=== PATIENT | female | born 1955 | race Caucasian/White ===

== ENCOUNTER → 2024-04-09 13:50 | Outpatient (REF) | payer MEDICARE, OTHER, SELFPAY | LOC: HWWDC 13:50 | PROVIDERS: ATTENDING PHYSICIAN Family Medicine | DX: Z12.31 Encounter for screening mammogram for malignant neoplasm of breast (principal) | CPT/HCPCS: 77063; 77067 ==

== ENCOUNTER 2024-05-14 18:16 | Emergency (ER) | payer MEDICARE, OTHER, SELFPAY ==
[2024-05-14 18:19] VITALS: BP 171/97
--- NOTE | 2024-05-14 19:15 | ED.GENMED ---
History of Present Illness
General
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
Source: patient
Exam Limitations: none
Time Seen by Provider: 05/14/24 18:48
History of Present Illness
History of Present Illness:
This is a 68 year old female that comes in with c/o right lower abd pain. States that she was in [facility] and went to the Hospital there for right lower abd pain. States tat she was told that she has a cyst that was 6-8cm. States that she has pain
and vomiting and was given Hydrocodone with Tylenol and Zofran. States that this is not helping. States that she is here due to the pain. States that she has an appointment with Dr. Irizarry on Sunday. States that she is nauseated , has a headache.
Denies any fever, chills, chest pain, SOB, vomiting, diarrhea, dizziness, urinary burning.
Past History
Past History
ED Past Medical History: Cancer (CLL), Hypercholesterolemia, Hypothyroidism and Other (Ovarian cyst)
ED Past Surgical History: Gynecological (Tubal.), Tonsilectomy and Other (Ganglion cyst removed, )
Social History
Tobacco: Non-smoker
Alcohol: Occasional
Drug: None
Personal:
Living: alone
Employment: Employed
Review of Systems
Review of Systems
All Other Systems: ROS reviewed and negative except as documented in HPI and ROS
Constitutional: Reports no symptoms; Denies fever or chills
EENT: Reports no symptoms
Respiratory: Reports no symptoms; Denies cough or trouble breathing
Cardiac: Reports no symptoms; Denies chest pain
ABD/GI: Reports abdominal pain, nausea and vomiting; Denies diarrhea
: Reports no symptoms; Denies dysuria, frequency or urgency
Musculoskeletal: Reports no symptoms
Skin: Reports no symptoms
Neurological: Reports headache; Denies dizzy
Psychiatric: Reports no symptoms
Phy Exam
General Physical Exam
General Presentation: mild distress
General age: appears stated age
General Skin: warm and dry
General Habitus: elderly
General Mental: alert
General Hydration: appears well hydrated
ENT Exam
ENT Exam: TM's normal, pharynx normal and neck supple
Eye Exam
Eye Exam: EOMI
Cardiovascular Exam
Cardiovascular Exam: regular rate/rhythm, no edema, no murmur and normal peripheral pulses
Pulmonary Exam
Pulmonary Exam: lungs clear, no respiratory distress, no rales, chest non tender, no crackles, no rhonchi, no wheezing and no cough
Gastrointestinal Exam
Gastrointestinal Exam: normal bowel sounds, soft, no organomegaly, no pulsatile mass, non distended and tender (RLQ tenderness with palpation)
Musculoskeletal Exam
Musculoskeletal Exam: full ROM and no edema
Skin Exam
Skin Exam: normal color, warm/dry, no rash and no petechia
Course
Orders/Labs/Results
Orders:
Orders
05/14/24 19:13
Acetaminophen [Tylenol] 1,000 mg PO NOW STA
HYDROmorphone [Dilaudid] 1 mg IV NOW STA
US Pelvis Only (non-obstetric) Urgent
Comment:
Reason For Exam: Right lower abd pain
05/14/24 19:14
0.9% Sodium Chloride 1000 ml [Nss] 1,000 ml IV BOLUS
05/14/24 19:16
CT Abd/pel W Iv And Oral Contr Urgent
Comment:
Reason For Exam: Right lower abd pain
Iohexol [Omnipaque] See Protocol PO NOW STA
05/14/24 19:18
Acetaminophen 1000MG/100Ml [Ofirmev] 1,000 mg in 100 ml IV ONCE
Acetaminophen IV Indication:: ED Narcotic Naive Pt-ONCE
05/14/24 19:59
Complete Blood Count/With Diff Urgent
Comprehensive Metabolic Panel Urgent
05/14/24 20:02
Urinalysis Reflex To Culture Urgent
Date Specimen was Collected: 05/14/24
Time Specimen was Collected: 19:25
05/14/24 20:31
Ondansetron Injectable [Zofran] 4 mg .ROUTE .STK-MED ONE
05/14/24 20:33
Ondansetron Injectable [Zofran] 4 mg IV NOW STA
Abnormal Lab Results
05/14/24
19:59
WBC 41.7 H* 10^3/uL
(4.8-10.8)
MCH 31.7 H pg
(27.0-31.0)
Abs Immat Gran (auto) 0.1 H 10^3/uL
(0-0.05)
Absolute Neuts (auto) 6.6 H 10^3/uL
(1.4-6.5)
Absolute Lymphs (auto) 33.8 H 10^3/uL
(1.2-3.4)
Absolute Monos (auto) 0.8 H 10^3/uL
(0.1-0.6)
Neutrophils % 15.7 L %
(42.2-75.2)
Lymphocytes % 81.1 H %
(20.5-51.1)
Potassium 3.4 L mmol/L
(3.5-5.1)
05/14/24 19:59
05/14/24 19:59
Leukocytosis ( Due to CLL), Potassium slightly low. Urine negative for infection or blood.
Vital Signs
Initial and Last Documented VS:
Initial Vital Signs
Temp Pulse Resp BP Pulse Ox
98.1 F 68 16 171/97 97
05/14/24 18:19 05/14/24 18:19 05/14/24 18:19 05/14/24 18:19 05/14/24 18:19
Last Documented Vital Signs
Temp Pulse Resp BP Pulse Ox
97.5 F 54 18 134/70 97
05/14/24 22:00 05/14/24 20:00 05/14/24 20:00 05/14/24 22:52 05/14/24 22:52
MDM/Problems Addressed
Differential Diagnosis Includes:
Ovarian cyst. UTI. Appendicitis
MDM/Problems Addressed:
This is a 68 year old female that comes in with c/o right lower abd pain. States that this started on Sunday and she went to the hospital in [facility] for right abd pain. States that she was told that she has a cyst. States that the pain is
unbearable and she has been vomiting.
Will get labs, US and CT scan. Medicate for pain and IV fluids.
CT cont- Bony degenerative changes as described. Coronary artery calcifications. Please correlate with symptoms of and risk factors for coronary artery disease, with further workup as clinically appropriate.
Back into see patient. Reviewed CT and US. Patient has an appointment with [facility] on Sunday. Will have patient use Tylenol 1000mg every 6 hours for pain and alternate with Ibuprofen 600mg every 6 hours with food. Will also give Oxycodone for
break through pain. Patient can use a heating pad or ice which ever makes her feel better to the lower abd. Explained that she is also constipated. will give Bottle of Magnesium Citrate. Patient to return with any concerns.
Chronic conditions affecting care:
History of ovarian cyst
Acute Exacerbation and/or Progression of Chronic Illness:
Ovarian cyst
*Radiology
Radiology exam reviewed: radiology read reviewed (US-Normal appearance of the uterus and the left ovary. There is a simple cyst within the right obary which has slightly enlarged compared to pelvic ultrasound of October 11, 2018. Base on criteria
from the [employer], this is classified as 0-RADS 2, almost certainly benign, but), all reviewed NAD by ED Provider (US cont-has slightly enlarged over time. Patient reportedly scheduled for a gynecology appointment for further
evaluation. CT abd/pelvis- The appendix is normal. Moderate amount of stool within the colon, suggesting a degree constipation. NO evidence for stercoral colitis. No evidence for bowel) and other (CT cont- obstruction or free intraperitoneal air.
Right ovarian homogeneous cystic density mass, increasing in size comparing back to 2018, and corresponding to simple cystic mass identified on earlier pelvic US today. based on interval enlargement over time, gynecologic consultation is
recommended.)
*Pulse Oximetry
Patient hypoxic: no
*EKG
Interpreted by ED Provider?: NA
Rate: EKG- N/A
*Student Support Advisor Interpretation
Rate: Student Support Advisor- N/A
*Critical Care Note
Total Time (30-74mins, 75-104mins- exclusive of procedures): Not Applicable
ED Attending Note
-
Portions of this chart may have been created with voice recognition software.� Occasional wrong word or��sound alike� substitutions may have occurred due to the inherent limitations of voice recognition software.
Discharge Plan
Departure
Patient Disposition: Home (Routine Discharge)
Date of Disposition: 05/14/24
Time of Disposition: 23:13
Patient with high blood pressure during this ER visit?: Yes
Condition: Good
Covid-19: Not Applicable
Discharge Problem:
Ovarian cyst, right, Constipation
Instructions: Constipation, Adult ED, Ovarian Cyst ED, BLOOD PRESSURE
Prescriptions:
New
oxycodone 5 mg tablet
5 mg PO Q8H PRN (Reason: Pain) Qty: 7 0RF
No Action
hydrocodone-acetaminophen 5-325 mg Tablet
1 tab PO Q8HPRN PRN (Reason: moderate pain)
simvastatin 10 mg Tablet
10 mg PO HS
Theragen Tablet
2 tab PO DAILY
fexofenadine [Magdalena] 180 mg Tablet
180 mg PO DAILY
losartan-hydrochlorothiazide 100-25 mg Tablet
1 tab PO DAILY
levothyroxine 88 mcg Tablet
88 mcg PO DAILY
ascorbic acid (vitamin C) [Vitamin C] 500 mg Tablet
500 mg PO DAILY
brimonidine 0.2 % Drops
1 drp BOTH EYES BID
docusate sodium [Colace] 100 mg Capsule
100 mg PO BIDPRN PRN (Reason: constipation)
montelukast 10 mg Tablet
10 mg PO DAILY
calcium citrate [Citracal] 200 mg (950 mg) Tablet
400 mg PO DAILY
coenzyme Q10 [CoQ-10] 100 mg Capsule
100 mg PO DAILY
Visbiome 112.5 billion cell Capsule
2 cap PO DAILY
[facility] tablet
1 tab PO DAILY
Referrals:
Valeria Irizarry MD [Active] - 05/16/24
Lizzy Contreras DO [Family Provider] -
Activity Restrictions/Additional Instructions:
As discussed, your blood work shows that your WBC are 41.7 which is consistent with your CLL. [facility] Ultrasound shows a right ovarian cyst that has increased in size. This is also noted on the CT scan and it is suggested that you follow up with the
[facility]. Please keep your appointment on Sunday as scheduled. You are also constipated and have been given a bottle of Magnesium Citrate. Please drink the entire bottle. This may take up to 6 hours to work and can cause some abd cramping. Please use
Tylenol 1000mg every 6 hours for pain and alternate this with Ibuprofen 600mg every 6 hours with food. So if you take the Tylenol at 9am the Ibuprofen you can take at 12 noon and then the Tylenol at 3pm and Ibuprofen at 6pm. You may also use a
heating pad to the low abd to help with discomfort. A prescription for Oxycodone has been sent to your pharmacy to help with severe pain. IF YOU HAVE ANY OTHER CONCERNS PLEASE RETURN TO THE EMERGENCY ROOM.
Interventions
Interventions:
*Risk Screen - Suicide Last Done: 05/14/24 18:19
*General Assessment Last Done: 05/14/24 21:23
*Neglect/Abuse Screening Last Done: 05/14/24 18:19
ED- Fall Risk Assessment Last Done: 05/14/24 21:17
*ED COVID-19 Vaccine History Last Done: 05/14/24 21:23
ED-Female Genitourinary Assessment Last Done: 05/14/24 21:17
Discharge Date and Time
Print Language: ESTONIAN
[2024-05-14 20:00] VITALS: BP 106/77
[2024-05-14] MEDS: OMNIPAQUE 50 ML PO (20:03)
[2024-05-14] MEDS: DILAUDID 1 MG IV (20:03)
[2024-05-14] MEDS: OFIRMEV 100 IV (20:03)
[2024-05-14] MEDS: NSS 1000 IV (20:04)
[2024-05-14 20:07] LABS: Urine Albumin Negative (Neg - Trace); Urine Bilirubin Negative (Negative); Urine Character Clear (Clear); Urine Color Yellow; Urine Glucose Negative (Negative); Urine Ketone Negative (Negative); Urine Leukocyte Negative (Negative); Urine Nitrite Negative (Negative); Urine Occult Blood Negative (Negative); Urine Specific Gravity 1.015 (<1.030); Urine Urobilinogen Negative (Neg - 1+)
[2024-05-14 20:13] LABS: Hematocrit 39.3 % (37.0-47.0); Hemoglobin 13.8 g/dL (12.0-16.0); Mean Corp Hgb Conc. 35.1 g/dL (33.0-37.0); Mean Corpuscular Hgb 31.7 pg (27.0-31.0); Mean Corpuscular Volume 90.1 fL (81.0-99.0); Mean Platelet Volume 8.9 fL (7.4-10.4); Platelet Count 242 10^3/uL (130-400); Red Blood Cell Count 4.36 10^6/uL (4.20-5.40); Red Cell Dist. Width 14.1 % (11.5-14.5)
[2024-05-14 20:17] VITALS: BP 147/81
[2024-05-14 20:24] LABS: ALT (SGPT) 19 U/L (0-35); AST (SGOT) 31 U/L (14-36); Albumin 4.6 g/dl (3.5-5.0); Alkaline Phosphatase 63 U/L (38-126); Blood Urea Nitrogen 15 mg/dl (7-17); Calcium 9.8 mg/dl (8.4-10.2); Carbon Dioxide 27 mmol/L (22-30); Chloride 102 mmol/L (98-107); Glucose 94 mg/dl (70-99); Potassium 3.4 mmol/L (3.5-5.1); Sodium 136 mmol/L (135-145); Total Bilirubin 1.1 mg/dl (0.2-1.3); Total Protein 6.8 g/dl (6.3-8.2); eGFR > 60.00
[2024-05-14 20:26] LABS: % Basophils 0.5 % (0-2); % Eosinophils 0.4 % (0-6); % Immature Granulocytes 0.3 % (0-0.5); % Lymphocytes 81.1 % (20.5-51.1); % Neutrophils 15.7 % (42.2-75.2); Absolute Basophils 0.2 10^3/uL (0-0.2); Absolute Eosinophils 0.2 10^3/uL (0-0.7); Absolute Immature Granulocytes 0.1 10^3/uL (0-0.05); Absolute Lymphocytes 33.8 10^3/uL (1.2-3.4); Absolute Monocytes 0.8 10^3/uL (0.1-0.6); Absolute Neutrophils 6.6 10^3/uL (1.4-6.5); Nucleated Red Blood Cells % 0 %
[2024-05-14 20:31] LABS: White Blood Cell Count 41.7 10^3/uL (4.8-10.8)
[2024-05-14] MEDS: ZOFRAN 4 MG IV (20:33)
[2024-05-14 22:13] VITALS: BP 147/63
[2024-05-14 22:52] VITALS: BP 134/70
[2024-05-14 23:00] VITALS: BP 142/74
[2024-05-14] MEDS: TORADOL 30 MG IV (23:21)
[2024-05-14] MEDS: CITROMA 300 ML PO (23:29)
== END 2024-05-14 23:34 | disposition home or self-care (01) ==
LOC: EMR 18:16
PROVIDERS: Clinical Nurse Specialist Family Health; EMERGENCY PHYSICIAN Emergency Medicine; FAMILY PHYSICIAN Family Medicine
DX: N83.201 Unspecified ovarian cyst, right side (principal); K59.00 Constipation, unspecified; R10.31 Right lower quadrant pain; C91.10 Chronic lymphocytic leukemia of B-cell type not having achieved remission; E78.00 Pure hypercholesterolemia, unspecified; E03.9 Hypothyroidism, unspecified; I25.10 Atherosclerotic heart disease of native coronary artery without angina pectoris; Z98.51 Tubal ligation status
CPT/HCPCS: 99284; 96374; 96375; 96361; 74177; 76856; 80053; 81003; 85025; Q9967

== ENCOUNTER → 2024-05-27 06:41 | Outpatient (REF) | payer MEDICARE, OTHER, SELFPAY ==
[2024-05-27 09:11] LABS: Hemoglobin 14.3 g/dL (12.0-16.0); Mean Corpuscular Hgb 32.4 pg (27.0-31.0); Mean Corpuscular Volume 95.2 fL (81.0-99.0); Mean Platelet Volume 9.6 fL (7.4-10.4); Platelet Count 300 10^3/uL (130-400); Red Blood Cell Count 4.41 10^6/uL (4.20-5.40); Red Cell Dist. Width 14.2 % (11.5-14.5)
[2024-05-27 10:08] LABS: White Blood Cell Count 43.6 10^3/uL (4.8-10.8)
[2024-05-27 10:09] LABS: % Basophils 0.5 % (0-2); % Eosinophils 0.8 % (0-6); % Immature Granulocytes 0.2 % (0-0.5); % Lymphocytes 86.5 % (20.5-51.1); % Monocytes 1.8 % (1.7-9.3); % Neutrophils 10.2 % (42.2-75.2); Absolute Basophils 0.2 10^3/uL (0-0.2); Absolute Eosinophils 0.4 10^3/uL (0-0.7); Absolute Immature Granulocytes 0.1 10^3/uL (0-0.05); Absolute Lymphocytes 37.7 10^3/uL (1.2-3.4); Absolute Monocytes 0.8 10^3/uL (0.1-0.6); Absolute Neutrophils 4.5 10^3/uL (1.4-6.5); Nucleated Red Blood Cells % 0 %
[2024-05-27 10:19] LABS: Blood Urea Nitrogen 29 mg/dl (7-17); Calcium 9.3 mg/dl (8.4-10.2); Carbon Dioxide 27 mmol/L (22-30); Chloride 103 mmol/L (98-107); Glucose 90 mg/dl (70-99); Potassium 4.2 mmol/L (3.5-5.1); Sodium 142 mmol/L (135-145); eGFR > 60.00
[2024-05-27 12:36] VITALS: BMI 23.2
== END ==
LOC: SDSPAT 06:41
PROVIDERS: ATTENDING PHYSICIAN Obstetrics & Gynecology; FAMILY PHYSICIAN Family Medicine
DX: Z01.818 Encounter for other preprocedural examination (principal)
CPT/HCPCS: 80048; 85025; 86850; 86900; 86901; 93005

== ENCOUNTER 2024-06-05 06:32 | Day surgery (SDC) | payer MEDICARE, OTHER, SELFPAY ==
--- NOTE | 2024-05-28 17:36 | PTCARENOTE ---
WBC 43.6, Mine at office notified.
[2024-06-05] VITALS (10 sets, daily range): BP systolic 116–130; BP diastolic 63–74; BMI 23.3
[2024-06-05] MEDS: TYLENOL 1000 MG PO (08:40)
[2024-06-05] MEDS: NORMOSOL-R/PLASMALYTE-A 1000 IV (08:40)
[2024-06-05] MEDS: CELEBREX 200 MG PO (08:40)
[2024-06-05] MEDS: SUBLIMAZE 25 MCG IV (11:06)
[2024-06-05] MEDS: ROXICODONE 5 MG PO (12:20)
== END 2024-06-05 12:50 | disposition home or self-care (01) ==
LOC: SDS 06:32
PROVIDERS: ATTENDING PHYSICIAN Obstetrics & Gynecology
PROC: 0UT24ZZ Resection of Bilateral Ovaries, Percutaneous Endoscopic Approach (ICD-10-PCS; 2024-06-05)
PROC: 0UT74ZZ Resection of Bilateral Fallopian Tubes, Percutaneous Endoscopic Approach (ICD-10-PCS; 2024-06-05)
DX: N83.291 Other ovarian cyst, right side (principal); N70.11 Chronic salpingitis; C91.10 Chronic lymphocytic leukemia of B-cell type not having achieved remission; E03.9 Hypothyroidism, unspecified; I10 Essential (primary) hypertension; M81.0 Age-related osteoporosis without current pathological fracture; Z79.899 Other long term (current) drug therapy
CPT/HCPCS: 58661; 88305; 86900; 86901; C1776